=== PATIENT | male | born 1960 | race Native Hawaiian/Other Pacific Islander ===

== ENCOUNTER 2017-08-26 11:02 | Outpatient (CLI) | payer BC | END 2017-08-26 19:36 | disposition home or self-care (01) | LOC: CT 11:02 | DX: R31.0 Gross hematuria (principal) ==

== ENCOUNTER 2021-11-25 09:37 | Outpatient (CLI) | payer BC | END 2021-11-25 18:50 | disposition home or self-care (01) | LOC: RAD 09:37 | PROVIDERS: ATTEND Physician Assistant | DX: M25.562 Pain in left knee (principal) ==

== ENCOUNTER 2023-06-08 10:37 | Observation (INO) | payer BC ==
[~2023-06-08] VITALS: Ht 180.3 cm; Wt 96.8 kg
[2023-06-08 11:40] VITALS: BP 139/75; TEMP 98.1
[2023-06-08 12:07] LABS: PLATELET COUNT 240 K/uL (142-355)
[2023-06-08 12:20] LABS: POTASSIUM 4.2 mmol/L (3.6-5.2); SODIUM 138 mmol/L (136-145)
[2023-06-08 15:35] VITALS: BP 160/91; TEMP 98; Ht 180.3 cm; Wt 96.8 kg
[2023-06-08 15:40] VITALS: BP 160/91; TEMP 98
[2023-06-08] MEDS ORDERED: TYLENOL 8 HOUR650 MG PO (16:37)
[2023-06-08] MEDS ORDERED: WEGOVY2.4 MG/0.7 SC (16:37)
[2023-06-08 19:33] VITALS: BP 147/69; TEMP 98.5
[2023-06-08 23:34] VITALS: BP 98/62; TEMP 98
[2023-06-09 03:35] VITALS: BP 105/63; TEMP 98.3
[2023-06-09 07:47] VITALS: BP 135/62; TEMP 98.3
[2023-06-09 12:00] VITALS: BP 103/61; TEMP 98.4
== END 2023-06-09 13:37 | disposition home or self-care (01) ==
LOC: ED 10:37 → MED/SURG 12:47
PROVIDERS: ADMIT Family Medicine; ATTEND Internal Medicine
DX: R55 Syncope and collapse (principal); R07.89 Other chest pain; R73.03 Prediabetes
CPT/HCPCS: 80053; 82533; 82550; 84443; 84484; 85027; 85610; 85730; 93005; 96360; 96372; 99221; 99284; G0378; J1650